=== PATIENT | male | born 1975 | race African-American/Black ===

== ENCOUNTER 2020-08-22 14:04 | Emergency (ER) | payer OTHER ==
[~2020-08-22] VITALS: Ht 180.3 cm; Wt 83.9 kg
[2020-08-22 14:11] VITALS: BP 120/80
--- NOTE | 2020-08-22 14:11 | NUR ---
Pt taken to ER bed 12.
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
--- NOTE | 2020-08-22 14:22 | NUR ---
KERRIE Wilson at pt bedside for further evaluation.
[2020-08-22] MEDS ORDERED: OLANZapine 10 MG VIAL IM ONE (14:30)
[2020-08-22] MEDS ORDERED: OLANZapine 5 MG ODT SL ONE (14:40)
[2020-08-22] MEDS ORDERED: traMADol 50 MG TAB PO ONE (15:00)
--- NOTE | 2020-08-22 16:07 | NUR ---
Pt laying on right side, visible rise and fall of chest. VSS, will continue to monitor.
--- NOTE | 2020-08-22 18:09 | NUR ---
Patient discharged with v/s stable. Written and verbal after care instructions given and explained. Patient verbalized understanding. Ambulatory with steady gait. All questions addressed prior to discharge. Advised to follow up with PMD.
[2020-08-22 18:10] VITALS: BP 128/74
== END 2020-08-22 18:09 | disposition home or self-care (01) ==
LOC: MED 14:04
DX: T14.8XXA Other injury of unspecified body region, initial encounter (principal); F29 Unspecified psychosis not due to a substance or known physiological condition; Y04.8XXA Assault by other bodily force, initial encounter; Y93.89 Activity, other specified; Y92.89 Other specified places as the place of occurrence of the external cause; Y99.8 Other external cause status
CPT/HCPCS: 99283; J3490

== ENCOUNTER 2022-01-11 11:28 | Emergency (ER) | payer OTHER ==
[~2022-01-11] VITALS: Ht 177.8 cm; Wt 83.9 kg
[2022-01-11 11:30] VITALS: BP 126/78
--- NOTE | 2022-01-11 11:55 | NUR ---
Dr. Higgins evaluating patient at bedside.
[2022-01-11 12:31] LABS: BASOPHILS % (AUTO) 0.6 % (0.0-2.0); EOSINOPHILS # (AUTO) 0.2 K/uL (0-0.4); EOSINOPHILS % (AUTO) 2.8 % (0.0-4.0); HEMATOCRIT 41.7 % (36-52); LYMPHOCYTES # (AUTO) 2.5 K/uL (2.0-11.5); LYMPHOCYTES % (AUTO) 37.1 % (20.5-51.1); MEAN CORPUSCULAR HEMOGLOBIN 30 pg (27-31); MEAN CORPUSCULAR HGB CONC 34 g/dL (33-37); MONOCYTES # (AUTO) 0.6 K/uL (0.8-1.0); MONOCYTES % (AUTO) 8.4 % (1.7-9.3); NEUTROPHILS # (AUTO) 3.4 K/uL (1.8-7.7); NEUTROPHILS % (AUTO) 51.1 % (42.2-75.2); PLATELET COUNT (AUTO) 216 K/uL (140-450); RED BLOOD CELL COUNT(AUTO) 4.74 MIL/uL (4.20-6.10); RED CELL DISTRIBUTION WIDTH 14.1 % (11.6-13.7); WHITE BLOOD COUNT (AUTO) 6.6 K/uL (4.8-10.8)
--- NOTE | 2022-01-11 12:35 | NUR ---
46 y/o male biba, homeless, pt presents to ed with c/o gen weakness with c/o hearing voices today. denies intention to harm self or others, denies si. objects removed from the room at this time. a&ox3 to name, and place. gcs 15, ambulates with steady gait. pmh: schizophrenia nka
[2022-01-11 12:53] LABS: ALBUMIN 3.3 g/dL (3.4-5.0); ANION GAP 12.6 (8-16); ASPARTATE AMINOTRANSFERASE 25 U/L (15-37); CARBON DIOXIDE 25.5 mmol/L (21-32); CHLORIDE 106 mmol/L (98-107); GFR ARICAN-AMERICAN 103 mL/min (>90); GLUCOSE 112 mg/dL (74-106); POTASSIUM 4.1 mmol/L (3.5-5.1); SODIUM SERUM 140 mmol/L (136-145); TOTAL BILIRUBIN 0.2 mg/dL (0.0-1.0); UREA NITROGEN, BLOOD 15 mg/dL (7-18)
[2022-01-11 12:55] LABS: ACETAMINOPHEN < 0.5 ug/ml (10-30); SALICYLATE < 2.8 mg/dL (2.8-20.0)
--- NOTE | 2022-01-11 13:20 | NUR ---
Patient discharged with v/s stable. Written and verbal after care instructions given. Patient verbalized understanding. Ambulatory with steady gait. All questions addressed prior to discharge. Advised to follow up with PMD.
--- NOTE | 2022-01-11 15:55 | NUR ---
The patient's care was reviewed and supervised by Romelia Pina, RN, RN.
== END 2022-01-11 13:20 | disposition home or self-care (01) ==
LOC: MED 11:28
DX: R44.3 Hallucinations, unspecified (principal); F20.9 Schizophrenia, unspecified
CPT/HCPCS: 36415; 80053; 82550; 85025; 99283; G0480; G0482

== ENCOUNTER 2022-01-22 23:22 | Emergency (ER) | payer OTHER ==
[~2022-01-22] VITALS: Ht 182.9 cm; Wt 79.4 kg
[2022-01-22 23:24] VITALS: BP 121/88
--- NOTE | 2022-01-22 23:28 | NUR ---
TO LOBBY FOLLOWING TRIAGE
--- NOTE | 2022-01-23 00:11 | NUR ---
PT LWBS AT THIS TIME.
== END 2022-01-23 00:11 | disposition left against medical advice (07) ==
LOC: MED 23:22
DX: R10.9 Unspecified abdominal pain (principal); Z53.21 Procedure and treatment not carried out due to patient leaving prior to being seen by health care provider

== ENCOUNTER 2022-03-22 21:53 | Emergency (ER) | payer OTHER ==
[~2022-03-22] VITALS: Ht 182.9 cm; Wt 85.3 kg
[2022-03-22 21:55] VITALS: BP 140/80
--- NOTE | 2022-03-22 22:00 | NUR ---
TO LOBBY A/W BED AMBULATORY , RISHABH LANGLEY, WITH SOB 96% ON RA
--- NOTE | 2022-03-22 23:48 | NUR ---
PATIENT REFUSED TO LET ME TO EKG ON HIM. PATIENT WAS AGGRAVATED AFTER GETTING BLOOD DRAWN.
--- NOTE | 2022-03-22 23:52 | NUR ---
PER XR TECH PT WAS AGGRAVATED AND ACTING STRANGE DURING XR. ER MADE AWARE.
[2022-03-22 23:56] LABS: BASOPHILS % (AUTO) 0.7 % (0.0-2.0); EOSINOPHILS # (AUTO) 0.2 K/uL (0-0.4); EOSINOPHILS % (AUTO) 3.3 % (0.0-4.0); HEMATOCRIT 37.2 % (36-52); HEMOGLOBIN 12.5 g/dL (12.0-18.0); LYMPHOCYTES # (AUTO) 2.6 K/uL (2.0-11.5); LYMPHOCYTES % (AUTO) 54.6 % (20.5-51.1); MEAN CORPUSCULAR HEMOGLOBIN 29 pg (27-31); MEAN CORPUSCULAR HGB CONC 34 g/dL (33-37); MEAN CORPUSCULAR VOLUME 87.3 fL (80-94); MONOCYTES # (AUTO) 0.4 K/uL (0.8-1.0); MONOCYTES % (AUTO) 7.4 % (1.7-9.3); NEUTROPHILS # (AUTO) 1.6 K/uL (1.8-7.7); PLATELET COUNT (AUTO) 262 K/uL (140-450); RED BLOOD CELL COUNT(AUTO) 4.26 MIL/uL (4.20-6.10); RED CELL DISTRIBUTION WIDTH 13.9 % (11.6-13.7); WHITE BLOOD COUNT (AUTO) 4.8 K/uL (4.8-10.8)
[2022-03-23 00:25] LABS: ALBUMIN 3.2 g/dL (3.4-5.0); ASPARTATE AMINOTRANSFERASE 53 U/L (15-37); CARBON DIOXIDE 30.9 mmol/L (21-32); CHLORIDE 106 mmol/L (98-107); CREATININE 0.9 mg/dL (0.6-1.3); GFR ARICAN-AMERICAN 116 mL/min (>90); GLUCOSE 101 mg/dL (74-106); POTASSIUM 3.9 mmol/L (3.5-5.1); SODIUM SERUM 143 mmol/L (136-145); TOTAL BILIRUBIN 0.2 mg/dL (0.0-1.0); UREA NITROGEN, BLOOD 20 mg/dL (7-18)
[2022-03-23] MEDS ORDERED: IBUP-2213 PO (03:59)
[2022-03-23 04:20] VITALS: BP 137/78
--- NOTE | 2022-03-23 04:21 | NUR ---
Patient given written and verbal discharge instructions and verbalizes understanding. Given copies of tests performed during visit. Patient is awake, alert and oriented. Ambulatory with steady gait. Refuses offer of detention placement. Given list of available shelters in surrounding areas.
== END 2022-03-23 04:21 | disposition home or self-care (01) ==
LOC: MED 21:53
DX: R07.89 Other chest pain (principal); R06.2 Wheezing; R06.02 Shortness of breath; F17.210 Nicotine dependence, cigarettes, uncomplicated; Z79.899 Other long term (current) drug therapy
CPT/HCPCS: 36415; 71045; 80053; 84484; 85025; 99284; 99285